=== PATIENT | male | born 1975 | race African-American/Black ===

== ENCOUNTER 2020-06-19 21:22 | Emergency (ER) | payer SELFPAY ==
[2020-06-19 21:30] VITALS: BP 141/85
[2020-06-19] MEDS ORDERED: PENICILLIN V POTASSIUM 500 MG TABLET PO ONE (21:42)
[2020-06-19] MEDS ORDERED: KETOROLAC TROMETHAMINE 60 MG/2 ML SDV IM ONE (21:42)
--- NOTE | 2020-06-19 21:48 | ER Document Report ---
HPI - HPI Patient complains to provider of: Dental pain Time Seen by Provider: 06/19/20 21:37 Context: 45-year-old male presents emergency room complaining of left lower dental pain with swelling that started 2 days ago. Denies any trauma or injury. No fevers. Painful to chew but is able to tolerate p.o. food and fluids without difficulty. States he has multiple bad teeth but does not currently have a dentist. Has been taking Tylenol without relief. Associated Symptoms: None Exacerbated by: Other - Chewing Relieved by: Denies Similar symptoms previously: No Recently seen / treated by doctor: No - ROS Systems Reviewed and Negative: Yes All other systems reviewed and negative - CONSTITUTIONAL Constitutional: DENIES: Fever - EENT EENT: DENIES: Sore Throat Notes: Dental pain - RESPIRATORY Respiratory: DENIES: Trouble Breathing - DERM Skin Color: Normal Skin Problems: None Past Medical History - General Information source: Patient - Social History Smoking Status: Current Every Day Smoker Frequency of alcohol use: Occasional Drug Abuse: None Family History: Reviewed & Not Pertinent Vertical Provider Document - CONSTITUTIONAL Agree With Documented VS: Yes Exam Limitations: No Limitations General Appearance: Mild Distress - INFECTION CONTROL TRAVEL OUTSIDE OF THE [place] IN LAST 30 DAYS: No - HEENT HEENT: Atraumatic, Normocephalic. negative: Pharyngeal Exudate, Pharyngeal Erythema Mouth Diagram: 1 - Nonfluctuant abscess with erythema, swelling, tenderness to palpation. Notes: Widespread dental decay. - NECK Neck: Normal Inspection, Supple. negative: Lymphadenopathy-Left, Lymphadenopathy-Right - RESPIRATORY Respiratory: Breath Sounds Normal, No Respiratory Distress, Chest Non-Tender - CARDIOVASCULAR Cardiovascular: Regular Rate, Regular Rhythm, No Murmur - NEURO Level of Consciousness: Awake, Alert, Appropriate Motor/Sensory: No Motor Deficit, No Sensory Deficit - DERM Integumentary: Warm, Dry, No Rash Course - Re-evaluation Re-evalutation: 06/19/20 21:45 Patient was counseled on the importance of taking Tylenol and or Motrin as needed for pain. Patient will be given IM Toradol and p.o. Pen-Vee K prior to discharge. Antibiotics as prescribed. Avoid any foods with nuts or seeds. Outpatient follow-up with a dentist soon as possible. [facility] information was provided. Patient was given strict return to the emergency room guidelines. Return for any new or worsening symptoms. All questions were answered. Patient verbalized understanding and agrees with plan of care. - Vital Signs Vital signs: Temp Pulse Resp BP Pulse Ox 97.7 F 90 16 141/85 H 97 06/19/20 21:28 06/19/20 21:28 06/19/20 21:28 06/19/20 21:28 06/19/20 21:28 Discharge - Discharge Clinical Impression: Pain, dental Condition: Stable Disposition: HOME, SELF-CARE Instructions: Dental Infection or Abscess ([facility]), Penicillin V K ([facility]), Toothache ([facility]) Additional Instructions: Antibiotics as prescribed. Tylenol and or Motrin as needed for pain. Avoid any foods with nuts or seeds. Outpatient follow-up with a dentist as soon as possible. Return to the emergency room for any new or worsening symptoms. Prescriptions: Penicillin V Potassium [Penicillin Vk 500 mg Tablet] 500 mg PO QID #40 tablet Referrals: [facility] [Provider Group] - Follow up as needed
== END 2020-06-19 22:18 | disposition home or self-care (01) ==
LOC: ER 21:22
DX: K08.9 Disorder of teeth and supporting structures, unspecified (principal); F17.200 Nicotine dependence, unspecified, uncomplicated
CPT/HCPCS: 99284; 96372; J1885

== ENCOUNTER 2020-06-22 01:55 | Emergency (ER) | payer SELFPAY ==
[2020-06-22 02:07] VITALS: BP 136/76
== END 2020-06-22 05:40 | disposition left against medical advice (07) ==
LOC: ER 01:55
DX: Z53.21 Procedure and treatment not carried out due to patient leaving prior to being seen by health care provider (principal)